=== PATIENT | male | born 1985 | race Caucasian/White ===

== ENCOUNTER 2019-05-08 01:29 | Emergency (ER) | payer BC, OTHER ==
[2019-05-08 02:06] VITALS: TEMP 97.9
--- NOTE | 2019-05-08 02:14 | ED ---
Psych HPI - General Source: patient Mode of arrival: ambulatory <Suni Hoskins - Last Filed: 05/08/19 03:25> <Wilner Azevedo - Last Filed: 05/08/19 06:39> <Wilner Harding - Last Filed: 05/08/19 12:09> - General Chief Complaint: Psychiatric Symptoms Stated Complaint: mental health Time Seen by Provider: 05/08/19 01:54 - History of Present Illness Initial Comments: Patient is a 34-year-old male presenting to the emergency department for psychiatric evaluation. Patient admits to having suicidal ideations for the last few days. Patient states he has not been eating, binge drinking, and taking random pills. Patient states he is just been finding prescription drugs to take including Xanax and Zoloft. Patient states he took "a few tablets of each today." Patient states he has been having a lot of trouble at home, with his family, and at work and is "just sick of all of it." Patient denies any homicidal thoughts. Patient has no pertinent past medical history. Patient's brother is here with him now. Patient has no other complaints at this time. Patient denies chest pain, shortness of breath, fever, chills, nausea, vomiting, diarrhea, abdominal pain. Upon arrival to the ER, vital signs are stable. (Suni Hoskins) - Related Data Home Medications Medication Instructions Recorded Confirmed No Known Home Medications 05/08/19 05/08/19 Allergies Allergy/AdvReac Type Severity Reaction Status Date / Time bupropion HCl Allergy Unknown Unknown Verified 05/08/19 01:47 [From Wellbutrin SR] shellfish derived Allergy Rash/Hives Verified 05/08/19 01:47 Iodine and Iodide Containing AdvReac Rash/Hives Verified 05/08/19 01:47 Produc Review of Systems ROS Other: All systems not noted in ROS Statement are negative. <Suni Hoskins - Last Filed: 05/08/19 03:25> ROS Other: All systems not noted in ROS Statement are negative. <Wilner Azevedo - Last Filed: 05/08/19 06:39> ROS Other: All systems not noted in ROS Statement are negative. <Wilner Harding - Last Filed: 05/08/19 12:09> ROS Statement: Those systems with pertinent positive or pertinent negative responses have been documented in the HPI. Past Medical History Past Medical History: No Reported History Additional Past Medical History / Comment(s): emtionally impaired History of Any Multi-Drug Resistant Organisms: MRSA Date of last positivie culture/infection: 2009 MDRO Source:: right arm Past Surgical History: Adenoidectomy, Ear Surgery, Orthopedic Surgery, Tonsillectomy Past Psychological History: Bipolar, Depression Smoking Status: Current every day smoker Past Alcohol Use History: Heavy, Occasional Past Drug Use History: None Reported <Suni Hoskins - Last Filed: 05/08/19 03:25> General Exam Limitations: no limitations <Suni Hoskins - Last Filed: 05/08/19 03:25> - General Exam Comments Initial Comments: GENERAL: Well-appearing, well-nourished and in no acute distress. HEAD: Atraumatic, normocephalic. EYES: Pupils equal round and reactive to light, extraocular movements intact, sclera anicteric, conjunctiva are normal. ENT: TMs normal, nares patent, oropharynx clear without exudates. Moist mucous membranes. NECK: Normal range of motion, supple without lymphadenopathy or JVD. LUNGS: Breath sounds clear to auscultation bilaterally and equal. No wheezes rales or rhonchi. HEART: Regular rate and rhythm without murmurs, rubs or gallops. ABDOMEN: Soft, nontender, normoactive bowel sounds. No guarding, no rebound. No masses appreciated. : Deferred EXTREMITIES: Normal range of motion, no pitting or edema. No clubbing or cyanosis. NEUROLOGICAL: Normal speech, normal gait. PSYCH: Depressed SKIN: Warm, Dry, normal turgor, no rashes or lesions noted. (Suni Hoskins) Course <Wilner Azevedo - Last Filed: 05/08/19 06:39> <Wilner Harding - Last Filed: 05/08/19 12:09> Vital Signs 05/08/19 05/08/19 05/08/19 01:41 08:36 11:46 Temperature 97.9 F Pulse Rate 115 H 88 Respiratory 16 16 20 Rate Blood Pressure 159/89 152/85 O2 Sat by Pulse 98 97 Oximetry - Reevaluation(s) Reevaluation #1: 05/08/19 04:10 patient evaluated by EPS, recommending inpatient psychiatric evaluation and treatment, patient will likely be transferred. I did complete a clinical certification for this patient. (Wilner Azevedo) Reevaluation #2: 05/08/19 0700 patient's care is signed out at shift change to Dr. Harding awaiting EPS disposition (Wilner Azevedo) Reevaluation #3: 05/08/19 12:07 Patient was endorsed me at our shift change by Dr. Azevedo. The patient was pending a final evaluation by EPS. He did receive that he will be transferred to [facility] for inpatient treatment. Patient did require some treatment for anxiety this morning. He otherwise rested comfortably. (Wilner Harding) Medical Decision Making <Suni Hoskins - Last Filed: 05/08/19 03:25> <Wilner Azevedo - Last Filed: 05/08/19 06:39> - Medical Decision Making Patient is a 34-year-old male presenting for psychiatric evaluation. Patient is having suicidal ideations, no homicidal thoughts. Vital signs stable. BAT 0.016. Exam is normal. (Suni Hoskins) patient has been petitioned by a friend as well as EPS nurse. (Wilner Azevedo) - Lab Data Lab Results 05/08/19 Range/Units 04:00 Urine Color Yellow Urine Appearance Clear (Clear) Urine pH 5.5 (5.0-8.0) Ur Specific [place] 1.017 (1.001-1.035) Urine Protein Trace H (Negative) Urine Glucose (UA) Negative (Negative) Urine Ketones Negative (Negative) Urine Blood Negative (Negative) Urine Nitrite Negative (Negative) Urine Bilirubin Negative (Negative) Urine Urobilinogen <2.0 (<2.0) mg/dL Ur Leukocyte Esterase Negative (Negative) Urine Opiates Screen Detected H (NotDetected) Ur Oxycodone Screen Not Detected (NotDetected) Urine Methadone Screen Not Detected (NotDetected) Ur Propoxyphene Screen Not Detected (NotDetected) Ur Barbiturates Screen Not Detected (NotDetected) U Tricyclic Antidepress Not Detected (NotDetected) Ur Phencyclidine Scrn Not Detected (NotDetected) Ur Amphetamines Screen Not Detected (NotDetected) U Methamphetamines Scrn Not Detected (NotDetected) U Benzodiazepines Scrn Detected H (NotDetected) Urine Cocaine Screen Not Detected (NotDetected) U Marijuana (THC) Screen Detected H (NotDetected) Disposition <Suni Hoskins - Last Filed: 05/08/19 03:25> <Wilner Azevedo - Last Filed: 05/08/19 06:39> <Wilner Harding - Last Filed: 05/08/19 12:09> Clinical Impression: Depression, Suicidal ideation Disposition: TRANSFER TO PSYCH HOSP/UNIT Condition: Stable Referrals: Ramos Aguillon MD [Primary Care Provider] - 1-2 days
[2019-05-08 04:22] LABS: Appearance,Urine Clear (Clear); Bilirubin,Urine Negative (Negative); Blood,Urine Negative (Negative); Color,Urine Yellow; Glucose,Urine (UA) Negative (Negative); Ketones,Urine Negative (Negative); Leukocyte Esterase,Urine Negative (Negative); Nitrite,Urine Negative (Negative); PH, Urine 5.5 (5.0-8.0); Protein,Urine Trace (Negative); Specific Gravity,Urine 1.017 (1.001-1.035); Urobilinogen,Urine <2.0 mg/dL (<2.0)
[2019-05-08 04:32] LABS: Amphetamine Screen,Urine Not Detected (NotDetected); Barbiturate Screen,Urine Not Detected (NotDetected); Benzodiazepines Screen,Urine Detected (NotDetected); Cocaine Screen,Urine Not Detected (NotDetected); Methadone Screen, Urine Not Detected (NotDetected); Opiate Screen,Urine Detected (NotDetected); Oxycodone Screen, Urine Not Detected (NotDetected); Phencyclidine Screen,Urine Not Detected (NotDetected); Tricyclic Antidepressant,Urine Not Detected (NotDetected); Urn Cannabinoid Scrn Detected (NotDetected)
[2019-05-08] MEDS ORDERED: LORazepam 1 MG TAB PO STA (10:41)
[2019-05-08 11:47] VITALS: BP 152/85; PULSE 88; RESP 20
== END 2019-05-08 11:48 ==
LOC: EC 01:29
DX: F31.9 Bipolar disorder, unspecified (principal); R45.851 Suicidal ideations; F41.9 Anxiety disorder, unspecified; F17.200 Nicotine dependence, unspecified, uncomplicated; Z88.8 Allergy status to other drugs, medicaments and biological substances; Z91.013 Allergy to seafood; Z91.041 Radiographic dye allergy status; Z86.14 Personal history of Methicillin resistant Staphylococcus aureus infection
CPT/HCPCS: 80306; 81003; 82075; 99285

== ENCOUNTER 2021-02-09 23:56 | Emergency (ER) | payer BC, OTHER ==
[2021-02-10 00:10] VITALS: RESP 20
[2021-02-10] MEDS ORDERED: DIPH,PERTUS(ACELL)TETVAC-LF 0.5 ML VIAL IM ONE (00:29)
[2021-02-10 00:41] VITALS: TEMP 99.5
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
[2021-02-10 01:57] VITALS: BP 152/85; PULSE 98
== END 2021-02-10 02:01 | disposition home or self-care (01) ==
LOC: EC 23:56
DX: S01.01XA Laceration without foreign body of scalp, initial encounter (principal); F17.200 Nicotine dependence, unspecified, uncomplicated; F12.90 Cannabis use, unspecified, uncomplicated; Y04.8XXA Assault by other bodily force, initial encounter
CPT/HCPCS: 12001; 70450; 70486; 72125; 90471; 90715; 99284